=== PATIENT | male | born 1955 | race Caucasian/White ===

== ENCOUNTER 2016-09-27 10:24 | Day surgery (SDC) | payer OTHER ==
[2016-09-27] MEDS ORDERED: LACTATED RINGERS 1,000 ML IV ONE (11:45)
[2016-09-27] MEDS ORDERED: LACTATED RINGERS 1,000 ML IV SCH (11:46)
[2016-09-27] MEDS ORDERED: PROPOFOL 10 MG/ML 20 ML VIAL IV ONE (11:52)
[2016-09-27 12:13] VITALS: TEMP 98.8
[2016-09-27 12:19] VITALS: RESP 16
--- NOTE | 2016-09-27 12:20 | P.PCN ---
Date of Procedure: 09/27/16 Preoperative Diagnosis: Postoperative Diagnosis: Procedure(s) Performed: Procedure: Total colonoscopy. Preoperative diagnosis: Screening for neoplasia. Postoperative diagnosis: Sigmoid diverticulosis with no evidence of acute diverticulitis, strictures, polyps or cancer. Preparation: HalfLytely prep. Sedation: Was provided by anesthesia. Brief clinical history: The patient is a 61-year-old female who is scheduled for this evaluation for screening for neoplasia. Patient has history of polyps. His last exam was around 5 years ago. He has no abdominal complaints, bleeding or anemia. Procedure: With the patient on her left lateral decubitus position and after informed consent and adequate sedation, the perianal area was inspected and it did not show any fissures or fistulas. There were no masses felt on digital rectal examination. The Olympus CFQ 160L video colonoscope was then inserted in the rectum in the usual fashion and advanced to the cecum. There was no polyps noted. Several diverticular orifices were seen scattered in the sigmoid with no evidence of acute diverticulitis or strictures. I retroflexed the endoscope in the rectum before the endoscope was withdrawn. The patient tolerated the procedure well. Plan: The patient was reassured. Discussed dietary measures. I recommended repeat exam in 5 years. He will follow-up with you as planned. Implants: Indications for Procedure: Operative Findings: Description of Procedure:
[2016-09-27 12:31] VITALS: BP 125/79; PULSE 81
== END 2016-09-27 12:55 | disposition home or self-care (01) ==
LOC: ORWHC2ENDO 10:24
DX: Z12.11 Encounter for screening for malignant neoplasm of colon (principal); K57.30 Diverticulosis of large intestine without perforation or abscess without bleeding; Z86.010 Personal history of colon polyps; I25.10 Atherosclerotic heart disease of native coronary artery without angina pectoris; I10 Essential (primary) hypertension; E78.5 Hyperlipidemia, unspecified; Z95.1 Presence of aortocoronary bypass graft; Z79.82 Long term (current) use of aspirin; Z79.899 Other long term (current) drug therapy
CPT/HCPCS: J2704; G0105

== ENCOUNTER → 2020-01-18 | Outpatient (CLI) | payer OTHER ==
--- NOTE | 2020-01-19 16:12 | CT ---
EXAMINATION TYPE: CT shoulder RT wo con DATE OF EXAM: 01/18/2020 COMPARISON: None HISTORY: pain rt shoulder x 6 months/no injury CT DLP: 278.3 mGycm Automated exposure control for dose reduction was used. TECHNIQUE: Axial imaging of the right shoulder was obtained without administration of intravenous con trast. Coronal and sagittal reformatted images obtained. Three-dimensional images were generated and utilized on a separate workstation. FINDINGS: There is acromioclavicular joint space narrowing, sclerosis, subchondral cystic change, vacuum phenom enon, mild spurring, and capsular hypertrophy. Minimal spurring at the glenohumeral joint. There is n o acute fracture or dislocation. No joint effusion. Myofascial planes are preserved. Emphysematous change of the right lung. Three-dimensional images are consistent with the above findings. IMPRESSION: 1. NO ACUTE FRACTURE OR DISLOCATION OF THE RIGHT SHOULDER. 2. MODERATE DEGENERATIVE CHANGE OF THE ACROMIOCLAVICULAR JOINT. 2. MINIMAL DEGENERATIVE CHANGE OF THE GLENOHUMERAL JOINT.
== END | disposition home or self-care (01) ==
LOC: RADCTMAIN 17:13
DX: M19.011 Primary osteoarthritis, right shoulder (principal); Z88.8 Allergy status to other drugs, medicaments and biological substances

== ENCOUNTER → 2020-04-29 | Outpatient (CLI) | payer OTHER | END | disposition home or self-care (01) | LOC: RADMRIMAIN 13:01 | PROVIDERS: ATTEND Orthopaedic Surgery | DX: Z53.9 Procedure and treatment not carried out, unspecified reason (principal) ==

== ENCOUNTER 2020-05-30 05:32 | Day surgery (SDC) | payer OTHER ==
[2020-05-27 15:18] VITALS: BMI 25.1
--- NOTE | 2020-05-29 10:00 | HP ---
HISTORY AND PHYSICAL CHIEF COMPLAINT: Right shoulder pain. HISTORY OF PRESENT ILLNESS: The patient is a 65-year-old retired gentleman who presents with a 9-month history of persistent/progressive right shoulder pain. He is having difficulty with overhead use and at night. He has tried medications in addition to therapy with worsening of his symptoms. He notes daily pain that rates 10/10. He is unable to have an MRI because previous cardiac stent placement. PAST MEDICAL HISTORY: Significant for anxiety and coronary artery disease along with hypertension. PAST SURGICAL HISTORY: Significant for cardiac stent placement along with coronary artery bypass grafting. CURRENT MEDICATIONS: 1. Aspirin. 2. Atorvastatin. 3. Metoprolol. 4. Naprosyn. ALLERGIES: He denies drug allergies. FAMILY HISTORY: Family history is noncontributory. SOCIAL HISTORY: Significant for social alcohol use and previous tobacco use. He quit in 2019. REVIEW OF SYSTEMS: Sixteen-point review of systems otherwise is reviewed and is noncontributory. PHYSICAL EXAMINATION: On examination, the patient is approximately 5 feet 10 inches, 175 pounds of mesomorphic habitus. HEENT exam is nonfocal. Neck is supple. On examination of the right shoulder, he is tender about the anterior subacromial space. He has moderate subacromial crepitus. Active range of motion forward elevation 155 degrees, external rotation with at arm side 60 degrees, internal rotation to T10. Motor strength is 4+ over 5 for external rotation of the arm to the side, 4 minus over 5 for abduction. Impingement test, Neer test, and Speed test are positive. He has pain with cross-body abduction. His distal neurovascular exam appears intact in the right upper extremity. X-rays of the right shoulder obtained in the office show a type 3 acromion along with acromioclavicular joint arthritis and diminished humeral head to acromial distance. There appeared to be cystic changes involving the greater tuberosity. IMPRESSION: 1. Right shoulder impingement with symptomatic rotator cuff tear. 2. Right acromioclavicular joint arthritis. 3. Right proximal bicipital tendinosis. RECOMMENDATIONS: I talked to the patient at length regarding his condition and treatment options. At this point, he is quite symptomatic and limited because of pain and weakness despite previous conservative measures. After thorough discussion, he opts to proceed with surgery. We will plan to proceed with arthroscopic evaluation with probable subacromial decompression, rotator cuff debridement versus repair, possible biceps tenotomy along with distal clavicular resection. We will likely perform that as an outpatient procedure. Risks and benefits were discussed at length in layman's terms. MMODL / IJN: [id number] /
[2020-05-30] MEDS ORDERED: LACTATED RINGERS 1,000 ML IV SCH (05:41)
[2020-05-30] MEDS ORDERED: DEXAMETHASONE SOD PHOSPHATE 4 MG/ML 1 ML VIAL IV ONE (05:41)
[2020-05-30] MEDS ORDERED: ONDANSETRON 4 MG/2 ML VIAL IVP ONE (05:41)
[2020-05-30] MEDS ORDERED: MIDAZOLAM 2 MG/2 ML VIAL IV PRN (05:41)
[2020-05-30 06:36] VITALS: RESP 16
[2020-05-30] MEDS ORDERED: LIDOCAINE 1% (10MG/ML) FOR IV START INTRADERMA ONE (06:42)
[2020-05-30] MEDS ORDERED: HYDROmorphone 0.5 MG/0.5 ML SYRINGE IVP PRN (07:00)
[2020-05-30] MEDS ORDERED: fentaNYL (PF) 50 MCG/ML 2 ML AMP IVP ONE (07:07)
[2020-05-30] MEDS ORDERED: MIDAZOLAM 2 MG/2 ML VIAL IVP ONE (07:07)
[2020-05-30] MEDS ORDERED: ROPIVACAINE 5 MG/ML 30 ML VIAL ONE (07:26)
[2020-05-30] MEDS ORDERED: ePHEDrine SULFATE/0.9% NACL/PF 50 MG/5 ML SYRINGE IV ONE (07:26)
[2020-05-30] MEDS ORDERED: LIDOCAINE 1% INJ 10MG/ML (20 ML MDV) ONE (07:26)
[2020-05-30] MEDS ORDERED: ROCURONIUM 10 MG/ML (5 ML VIAL) IV ONE (07:26)
[2020-05-30] MEDS ORDERED: MIDAZOLAM 2 MG/2 ML VIAL ONE (07:26)
[2020-05-30] MEDS ORDERED: PROPOFOL 10 MG/ML 20 ML VIAL IV ONE (07:26)
[2020-05-30] MEDS ORDERED: GLYCOPYRROLATE 0.2 MG/ML 2 ML VIAL ONE (07:26)
[2020-05-30] MEDS ORDERED: NEOSTIGMINE 1 MG/ML 10 ML VIAL ONE (07:26)
[2020-05-30] MEDS ORDERED: PHENYLEPHRINE-0.9% NACL SYG 1,000 MCG/10 ML SYRINGE ONE (07:26)
[2020-05-30] MEDS ORDERED: DEXAMETHASONE SOD PHOSPHATE 4 MG/ML 1 ML VIAL ONE (07:26)
[2020-05-30] MEDS ORDERED: LACTATED RINGERS 1,000 ML IV ONE (08:54)
[2020-05-30 09:04] VITALS: TEMP 97
--- NOTE | 2020-05-30 09:10 | P.OP ---
Date of Procedure: 05/30/20 Preoperative Diagnosis: Right shoulder impingement/rotator cuff tear and acromioclavicular joint arthritis Postoperative Diagnosis: Same in addition to high-grade partial-thickness tear Procedure(s) Performed: Right shoulder arthroscopic subacromial decompression/biceps tenotomy/rotator cuff repair/distal clavicular resection Implants: Arthrex 4.75 mm swivel lock anchor 1, 5.5 mm swivel lock anchor 1 Anesthesia: ROSANNE, regional Surgeon: Avila Vela Greeting Card Writer #1: Jeffy Wayne Estimated Blood Loss (ml): 10 Pathology: none sent Condition: stable Disposition: PACU Indications for Procedure: The patient is a 65-year-old male presents with progressive/persistent pain in the right shoulder after previous injury despite conservative measures. A discussion of the risks and benefits of operative intervention versus continued conservative measures was made with the patient. He opted to proceed with surgery. Operative risks to include infection, neurovascular injury, development of blood clots, possible tendon rerupture, possible postoperative stiffness and need for subsequent procedures was discussed. Informed consent was obtained. Operative Findings: As below Description of Procedure: The patient was brought to the operating room, and after induction of general anesthesia was placed in a beachchair position. A preoperative interscalene block was placed for postoperative analgesia. I examined the right shoulder. There was no gross block to passive motion or gross glenohumeral instability. The right upper extremity was prepped and draped in normal fashion. The bony outlines the acromion, distal clavicle, and coracoid process were outlined with a skin marker. The glenohumeral joint was inflated with 50 mL of saline utilizing a spinal needle from posterior approach. A posterior portal was made through a 5 mm skin incision 1 cm medial and inferior to the posterior lateral border time. A blunt trocar was used to easily into the joint. Diagnostic arthroscopy was performed. An anterior portal was made just lateral to the coracoid process entering the joint above the subscapularis tendon. The subscapularis tendon appeared to be intact. Anterior labrum was intact. The inferior recess was inspected. The posterior labrum was intact. There was a high-grade partial-thickness tear of the long head of the biceps involving interarticular portion. It was elected to proceed with release at this point. This was released from the superior labrum with electrocautery and was allowed to retract to the bicipital groove. On inspection the rotator cuff, a full- thickness tear involving the supraspinatus was noted measuring 1 1/2 cm. The arthroscope was then placed into the subacromial space. A lateral portal was made 2 centimeters inferior to the anterior lateral border of the acromion. The rotator cuff was then mobilized with a traction suture. This was then easily brought back to the greater tuberosity. The soft tissue on the undersurface of the acromion was debrided with a motorized shaver and electrocautery clearly defining the anterior medial and lateral borders as well as the distal clavicle. An anterior inferior acromioplasty was performed with a motorized farzad starting anterolateral, then extending this posteriorly, then extending this medially. I converted to a flat acromion and this was verified in the posterior and lateral viewing portals. Significant degenerative changes involving the acromioclavicular joint were noted. The distal 4 mm of the clavicle was resected with a motorized farzad. The greater tuberosity was lightly decorticating with a shaver down to a bleeding bony surface. An accessory superior lateral portals made just off the lateral edge of the acromion for anchor placement. 1 anchor was then placed just off the articular surface with the appropriate starting awl. A 4.75 mm anchor preloaded with #2 fiber tapeas placed. Good purchase was obtained. These fiber tapes were then passed the rotator cuff with a scorpion suture passer. A lateral row was created utilizing these tapes long with a traction suture . A 5.5 mm swivel lock anchor was placed laterally. Good purchase was obtained. Final arthroscopic view showed adequate compression at the footprint. The arthroscope was then removed. The portals were closed with simple 3-0 nylon sutures. A sterile dressing was applied in addition to a sling. The patient was then awoken from general anesthesia and transferred to recovery room in good condition. Blood loss was estimated at 10 mL. No complications were incurred. Sponge and needle counts were correct in the case. Darian QUIGLEY assisted and the major components of the case to include arm positioning, anchor placement, and rotator cuff repair.
[2020-05-30 10:35] VITALS: BP 121/67; PULSE 70
--- NOTE | 2020-05-30 21:56 | P.ANPRN ---
Procedure Note - Anesthesia - Nerve Block Performed Right Interscalene Single Time Out Performed: No Date of Procedure: 05/30/20 Procedure Start Time: 07:10 Procedure Stop Time: 07:17 Location of Patient: PreOp Indication: Acute Post-Operative Pain, Dx/Pain Location, Requested by Surgeon Specifically requested for management of pain by : Avila Vela Sedation Type: Sedate with meaningful contact maintained Preparation: Sterile Prep Position: Supine Catheter: None Needle Types: Facet Needle Gauge: 21 Ultrasound used to visualize needle placement: Yes Ultrasound used to observe medication spread: Yes Injectate: 0.5% Ropivacaine (see comment for volume) Blood Aspirated: No Pain Paresthesia on Injection Noted: No Resistance on Injection: Normal Image Stored and Saved: Yes Events: Uneventful and Well Tolerated (20cc local anesthesia used)
== END 2020-05-30 11:00 | disposition home or self-care (01) ==
LOC: OR 05:32
PROVIDERS: ATTEND Orthopaedic Surgery
DX: M75.41 Impingement syndrome of right shoulder (principal); M19.011 Primary osteoarthritis, right shoulder; M75.21 Bicipital tendinitis, right shoulder; M75.121 Complete rotator cuff tear or rupture of right shoulder, not specified as traumatic; I25.10 Atherosclerotic heart disease of native coronary artery without angina pectoris; I10 Essential (primary) hypertension; F41.9 Anxiety disorder, unspecified; I25.2 Old myocardial infarction; B18.2 Chronic viral hepatitis C; I45.10 Unspecified right bundle-branch block; Z95.1 Presence of aortocoronary bypass graft; Z95.5 Presence of coronary angioplasty implant and graft; Z87.891 Personal history of nicotine dependence; Z79.82 Long term (current) use of aspirin; Z79.899 Other long term (current) drug therapy; Z79.1 Long term (current) use of non-steroidal anti-inflammatories (NSAID)
CPT/HCPCS: 64415; 76942; 84132; 29826; 29827; 29824; 29822; C1713 ×2; J2250; J1100; J2710; J0690; J2405; J2001; J3010; J2795; J2370; J2704

== ENCOUNTER → 2020-08-19 | Outpatient (CLI) | payer OTHER ==
[2020-08-19 12:16] LABS: African American GFR (CKD) 89.9 (60.0-200.0); Albumin 4.2 g/dL (3.80-4.90); Albumin/Globulin Ratio 1.62 (1.60-3.17); Anion Gap 10.8 mmol/L (4.00-12.00); Calcium 9.7 mg/dL (8.7-10.3); Carbon Dioxide 23.2 mmol/L (21.6-31.8); Globulin 2.6 g/dL (1.6-3.3); Non-African American GFR(CKD) 77.5 (60.0-200.0); Potassium 4.6 mmol/L (3.5-5.5); Total Bilirubin 0.7 mg/dL (0.2-1.2); Total Protein 6.8 g/dL (6.2-8.2)
[2020-08-26 19:38] LABS: Normetanephrine, Free 57 pg/mL (< OR = 148); Total, Free (MN + NMN) 57 pg/mL (< OR = 205)
== END | disposition home or self-care (01) ==
LOC: LABWHC1 07:05
PROVIDERS: ATTEND Internal Medicine Endocrinology, Diabetes & Metabolism
DX: D35.00 Benign neoplasm of unspecified adrenal gland (principal)
CPT/HCPCS: 36415; 80053; 82088; 82384; 83835; 84244

== ENCOUNTER 2023-06-20 08:40 | Emergency (ER) | payer OTHER ==
--- NOTE | 2023-06-20 09:14 | ED ---
Upper Extremity HPI - General Chief Complaint: Extremity Injury, Upper Stated Complaint: L Arm Injury Time Seen by Provider: 06/20/23 09:00 Source: patient, RN notes reviewed Mode of arrival: ambulatory Limitations: no limitations - History of Present Illness Initial Comments: 68-year-old male presenting with left elbow pain for 1 day. States he was at a shooting range yesterday when he had a mechanical fall where he fell backwards, extending his left arm backwards to break his fall. He denies hitting his head, denies loss of consciousness, denies syncope. Since the fall, patient has had increasing pain and swelling in the left elbow. Denies numbness, tingling. Patient takes a daily aspirin. States he took ibuprofen at 6 AM this morning. Denies other injuries. MD Complaint: Injury to:: left, elbow -: days(s) (1) - Related Data Home Medications Medication Instructions Recorded Confirmed Aspirin 81 mg PO DAILY 09/27/16 05/30/20 Atorvastatin [Lipitor] 80 mg PO HS 09/27/16 05/30/20 Naproxen Sodium [Aleve] 220 mg PO BID PRN 05/27/20 05/30/20 Previous Rx's Medication Instructions Recorded HYDROcodone/APAP 7.5-325MG [[place] 1 each PO Q6HR PRN #28 tab 05/30/20 7.5] Allergies Allergy/AdvReac Type Severity Reaction Status Date / Time simvastatin Allergy muscle pain Verified 06/20/23 08:50 Review of Systems ROS Statement: Those systems with pertinent positive or pertinent negative responses have been documented in the HPI. ROS Other: All systems not noted in ROS Statement are negative. Past Medical History Past Medical History: Coronary Artery Disease (CAD), GERD/Reflux, Hyperlipidemia, Hypertension, Liver Disease Additional Past Medical History / Comment(s): Vitamin d deficiency, Hep C 1969's and 1989's(tx), hx ulcer, dry eyes, tinnitus History of Any Multi-Drug Resistant Organisms: None Reported Past Surgical History: Coronary Bypass/CABG, Heart Catheterization With Stent, Orthopedic Surgery, Tonsillectomy Additional Past Surgical History / Comment(s): TRIPLE BYPASS APROX 10+12 yrs ago, ORIF LT TIBIA FIBULA AND LT ANKLE 1988, 2 cardiac stents approx 20 yrs ago Past Anesthesia/Blood Transfusion Reactions: No Reported Reaction Date of Last Stent Placement:: approx 20 yrs ago Past Psychological History: Anxiety, Depression Smoking Status: Current every day smoker Past Alcohol Use History: Occasional Past Drug Use History: None Reported - Past Family History Mother Family Medical History: Pulmonary Embolus General Exam Limitations: no limitations General appearance: alert, in no apparent distress Respiratory exam: Present: normal lung sounds bilaterally. Absent: respiratory distress, wheezes, rales, rhonchi, stridor Cardiovascular Exam: Present: regular rate, normal rhythm, normal heart sounds. Absent: systolic murmur, diastolic murmur, rubs, gallop, clicks Extremities exam: Present: normal inspection (Mild edema present over dorsal aspect of left elbow. No bruising or skin discolorations. Tenderness to palpation over dorsal aspect of elbow. Full range of motion, strength of bilate ral elbows. Full sensation and radial pulses bilaterally. Cap refill less than 2 seconds bilaterally.), full ROM, normal capillary refill, other (Full range of motion of bilateral shoulders and wrists with no tenderness to palpation. No deformities). Absent: tenderness, pedal edema, joint swelling, calf tenderness Neurological exam: Present: alert, oriented X3, CN II-XII intact Psychiatric exam: Present: normal affect, normal mood Skin exam: Present: warm, dry, intact, normal color. Absent: rash Course Vital Signs 06/20/23 08:48 Temperature 98.2 F Pulse Rate 79 Respiratory 18 Rate Blood Pressure 139/80 O2 Sat by Pulse 99 Oximetry Procedures - Orthopedic Splinting/Casting Injury #1 Side: left Upper Extremity Injury Location: long arm, elbow Upper Extremity Immobilizer: sling/shoulder immobilizer, posterior splint, synthetic pre-padded splint Medical Decision Making - Medical Decision Making Was pt. sent in by a medical professional or institution (, PA, CERAMIC TILE INSTALLER, urgent care, hospital, or long term...) When possible be specific @ -No Did you speak to anyone other than the patient for history (EMS, parent, family, police, friend...)? What history was obtained from this source @ -No Did you review nursing and triage notes (agree or disagree)? Why? @ -I reviewed and agree with nursing and triage notes Were old charts reviewed (outside hosp., previous admission, EMS record, old EKG, old radiological studies, urgent care reports/EKG's, long term records)? Report findings @ -No old charts were reviewed Differential Diagnosis (chest pain, altered mental status, abdominal pain women, abdominal pain men, vaginal bleeding, weakness, fever, dyspnea, syncope, headache, dizziness, GI bleed, back pain, seizure, CVA, palpatations, mental health, musculoskeletal)? @ -Elbow fracture, dislocation, sprain EKG interpreted by me (3pts min.). @ -None X-rays interpreted by me (1pt min.). @ -Left elbow x-ray reveals anterior and posterior fat pad consistent with occult fracture CT interpreted by me (1pt min.). @ -None done U/S interpreted by me (1pt. min.). @ -None done What testing was considered but not performed or refused? (CT, X-rays, U/S, labs)? Why? @ -None What meds were considered but not given or refused? Why? @ -Toradol or NSAIDs not given due to patient taking daily aspirin Did you discuss the management of the patient with other professionals (professionals i.e. , PA, CERAMIC TILE INSTALLER, lab, RT, psych nurse, social work instructor, dubbing machine operator, teacher, community arts officer, case fitter)? Give summary @ -No Was smoking cessation discussed for >3mins.? @ -No Was critical care preformed (if so, how long)? @ -No Were there social determinants of health that impacted care today? How? (Homelessness, low income, unemployed, alcoholism, drug addiction, transportation, low edu. Level, literacy, decrease access to med. care, fdc, rehab)? @ -No Was there de-escalation of care discussed even if they declined (Discuss DNR or withdrawal of care, Hospice)? DNR status @ -No What co-morbidities impacted this encounter? (DM, HTN, Smoking, COPD, CAD, Cancer, CVA, ARF, Chemo, Hep., AIDS, mental health diagnosis, sleep apnea, morbid obesity)? @ -None Was patient admitted / discharged? Hospital course, mention meds given and route, prescriptions, significant lab abnormalities, going to OR and other pertinent info. @ -Patient was seen for left elbow pain. X-ray revealed anterior and posterior fat pads consistent with occult fracture. Long-arm splint applied. Patient sent home with pain medication. Discussed Ortho follow-up and supportive care. Undiagnosed new problem with uncertain prognosis? @ -No Drug Therapy requiring intensive monitoring for toxicity (Heparin, Nitro, Insulin, Cardizem)? @ -No Were any procedures done? @ -No Diagnosis/symptom? @ -Left elbow fracture Acute, or Chronic, or Acute on Chronic? @ -Acute Uncomplicated (without systemic symptoms) or Complicated (systemic symptoms)? @ -Uncomplicated Side effects of treatment? @ -No Exacerbation, Progression, or Severe Exacerbation? @ -No Poses a threat to life or bodily function? How? (Chest pain, [place], MD, pneumonia, PE, COPD, DKA, ARF, appy, cholecystitis, CVA, Diverticulitis, Homicidal, Suicidal, threat to staff... and all critical care pts) @ -No - Radiology Data Radiology results: report reviewed, image reviewed Disposition Clinical Impression: Fracture of elbow Disposition: HOME SELF-CARE Condition: Stable Instructions (If sedation given, give patient instructions): Arm Fracture in Adults (ED) Additional Instructions: Please return to the Emergency Department if symptoms worsen or any other concerns. Is patient prescribed a controlled substance at d/c from ED?: No When asked, does pt state using other controlled substances?: No Referrals: [facility] [Primary Care Provider] - 1-2 days Enrrique Alvarez MD [Medical Doctor] - 1-2 days
[2023-06-20 10:07] VITALS: RESP 18
--- NOTE | 2023-06-20 10:16 | XR ---
EXAMINATION TYPE: XR elbow complete LT DATE OF EXAM: 06/20/2023 CLINICAL HISTORY: pain TECHNIQUE: Frontal, lateral and oblique images of the left elbow are obtained. COMPARISON: None. FINDINGS: There is no acute fracture/dislocation evident of the elbow. Prominent anterior and wood products manufacturer ior fat pads. Occult fracture is not excluded. Degenerative joint space narrowing and spur formation noted. IMPRESSION: While no displaced fracture is seen there are pathologic anterior and posterior fat pads noted which can be seen in patients with occult fracture. Correlate clinically. Advanced degenerative changes.
[2023-06-20] MEDS: ACET/COD 300 MG/30 MG STARTER PACK 6 TAB BTL PO STA (10:51)
[2023-06-20 11:37] VITALS: BP 136/72; PULSE 82; TEMP 97.9
== END 2023-06-20 11:01 | disposition home or self-care (01) ==
LOC: EC 08:40
DX: S42.402A Unspecified fracture of lower end of left humerus, initial encounter for closed fracture (principal); F17.200 Nicotine dependence, unspecified, uncomplicated; Z88.8 Allergy status to other drugs, medicaments and biological substances; W19.XXXA Unspecified fall, initial encounter
CPT/HCPCS: 29105; 99283